=== PATIENT | female | born 1980 | race Hispanic/Latino ===

== ENCOUNTER 2024-08-01 12:34 | Emergency (ER) | payer OTHER ==
[~2024-08-01] VITALS: Ht 157.5 cm; Wt 80.3 kg
[2024-08-01] MEDS ORDERED: IOPAMIDOL 370 MG/ML 100 ML INFUS..BTL INJ ONE (14:12)
[2024-08-01] MEDS: KETOROLAC TROMETHAMINE 30 MG/ML VIAL IV STA (14:24)
[2024-08-01 16:10] VITALS: PULSE 70; RESP 20; TEMP 98.4
[2024-08-01] MEDS ORDERED: NAPROSYN500 MG PO (17:20)
[2024-08-01] MEDS ORDERED: ONDANSETRON ODT4 MG PO (17:21)
[2024-08-01 17:38] VITALS: BP 128/78; PULSE 69; RESP 18; TEMP 97.9; O2SAT 100
== END 2024-08-01 17:39 | disposition home or self-care (01) ==
LOC: FSED 12:37
DX: R10.32 Left lower quadrant pain (principal); N83.201 Unspecified ovarian cyst, right side; R74.01 Elevation of levels of liver transaminase levels; R10.2 Pelvic and perineal pain; R11.0 Nausea
CPT/HCPCS: 74177; 76830; 76856; 80048; 81003; 81025; 85025; 99283; J1885; Q9967